=== PATIENT | male | born 1980 | race Caucasian/White ===

== ENCOUNTER 2016-06-27 22:40 | Emergency (ER) | payer SELFPAY ==
[~2016-06-27] VITALS: Ht 185.4 cm; Wt 115.7 kg
[~2016-06-27 22:40] MED LIST: BENA1TAB3 PO; CEPH500C PO; HYDR-3714 PO; HYDR-757 PO; LISI1TAB10 PO; NAPR-243 PO; NAPR250T34 PO; VENL75CA PO; WRF10T PO
--- OUTSIDE RECORDS SUMMARY | 2016-06-27 22:46 | XMS REPORT ---
Author Author GREGORY HADLEY [facility] eClinicalWorks Address Unknown Phone Unavailable Care Team Providers Care Assistant Facility Manager Name Role Phone GREGORY HADLEY CP Unavailable Allergies, Adverse Reactions, Alerts Substance Reaction Event Type N.K.D.A. Info Not Available Non Drug Allergy Problems Problem Type Condition Code Onset Dates Condition Status Assessment Hypertension I10 Active Problem Headache R51 Active Problem Essential hypertension I10 Active Problem Hypertension I10 Active Problem Panic disorder without agoraphobia 300.01 Active Assessment Sinusitis J32.9 Active Problem Bipolar I disorder, most recent episode (or current) mixed, moderate 296.62 Active Problem Major depressive disorder, recurrent episode, severe, without mention of psychotic behavior 296.33 Active Medications Medication Code System Code Instructions Start Date End Date Status Dosage Sudafed [facility] [address]-75 60 mg Orally every 6 hrs Jun 05, 2015 1 tablet as needed Lisinopril-Hydrochlorothiazide [facility] [address]-46 20-25 MG Orally Once a day Jun 05, 2015 1 tablet Doxycycline Hyclate [facility] [address]-70 100 MG Orally every 12 hrs Jun 05, 2015 Jun 15, 2015 1 capsule Procedures Procedure Coding System Code Date VENIPUNCT, ROUTINE* CPT-4 87075 Jun 05, 2015 Office Visit, Est Pt., Level 4 CPT-4 20224 Jun 05, 2015 COMPREHEN METABOLIC PANEL CPT-4 03972 Jun 05, 2015 Vital Signs Date/Time: Jun 05, 2015 Temperature 98.0 F Weight 270 lbs Height 73 in BMI 35.62 Index Blood Pressure Diastolic 90 mmHg Blood Pressure Systolic 164 mmHg Cardiac Monitoring Heart Rate 90 bpm Results Name Result Date Reference Range Unit Abnormality Flag ROUTINE VENIPUNCTURE Summary Purpose eClinicalWorks Submission
[2016-06-27] MEDS ORDERED: TETRACAINE 0.5% OPHTH SOLN 5 ML BTL ONE (22:54)
[2016-06-27] MEDS ORDERED: TETRACAINE 0.5% OPHTH SOLN 5 ML BTL OP ONE (23:00)
[2016-06-27] MEDS ORDERED: RX-NEO/POLYB/HC OTIC (CORTISPORIN) SUSP 10 ML BTL OT STA (23:46)
--- NOTE | 2016-06-27 23:50 | ED EENT ---
History of Present Illness General Chief Complaint: Foreign Body Stated Complaint: FOREIGN BODY IN LEFT EAR Nursing Triage Note: Pt c/o possible cockroach in L ear Source: patient Exam Limitations: no limitations History of Present Illness Time seen by provider: 22:50 Initial Comments This 36-year-old gentleman presents to the emergency room and some distress due to a bug in his left ear. He attempted to flush it out with peroxide which was not effective. He no longer feels that moving but does feel the foreign body sensation and pain. Allergies and Home Medications Allergies Coded Allergies: No Known Drug Allergies (Unverified , 07/06/09) Home Medications No Active Prescriptions or Reported Meds Review of Systems Constitutional: no symptoms reported Ears: See HPI Neurological: No Symptoms Reported Past Slgptsp-Othemh-Qfanhw Hx Patient Social History Alcohol Use: Past History Recreational Drug Use: No Smoking Status: Current Everyday Smoker Type Used: Cigarettes Recent Foreign Travel: No Contact w/Someone Who Travel: No Recent Infectious Disease Expo: No Recent Hopitalizations: No Seasonal Allergies Seasonal Allergies: No Surgeries HX Surgeries: Yes Surgeries: Orthopedic Respiratory Hx Respiratory Disorders: Yes Respiratory Disorders: Pulmonary Embolism Cardiovascular Hx Cardiac Disorders: Yes Cardiac Disorders: Deep Vein Thrombosis, Hypertension Neurological Hx Neurological Disorders: No Reproductive System Hx Reproductive Disorders: No Genitourinary Hx Genitourinary Disorders: No Gastrointestinal Hx Gastrointestinal Disorders: No Musculoskeletal Hx Musculoskeletal Disorders: Yes (DVT, chronic right knee pain, cyst posterior right knee) Endocrine Hx Endocrine Disorders: No HEENT HX ENT Disorders: No Cancer Hx Cancer: No Psychosocial Hx Psychiatric Problems: Yes Behavioral Health Disorders: Depression Blood Transfusions Hx Blood Disorders: Yes (DVTs) Family Medical History Significant Family History: No Pertinent Family Hx Physical Exam Vital Signs Vital Sign - Last 12Hours 06/27/16 22:52 Temp 97.0 Pulse 80 Resp 18 B/P 167/126 Pulse Ox 96 O2 Delivery Room Air General Appearance: WD/WN moderate distress Ears: left ear auricle normal, bilateral ear TM red, bilateral ear other ( large bug in the left ear canal resembling a bedbug or Jones. 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 Tetracaine was then drained out. Canal was visualized with a metal speculum and overhead light. The bug was then removed with a small pair of mosquitoes. Ear was reexamined after removal. Cortisporin drops were then applied and dispensed with patient. Progress/Results/Core Measures Results/Orders My Orders Orders-RAMA HARVEY MD Tetracaine 0.5% Ophth Soln (Tetravisc 0. (06/27/16 23:00) Tetracaine 0.5% Ophth Soln (Tetravisc 0. (06/27/16 22:54) Rx-Damián/Poly/Hc Otic Susp (Rx-Cortisporin (06/27/16 23:46) Medications Given in ED Current Medications Medications Dose Ordered Sig/Matty Route Start Time Stop Time Status Last Admin Dose Admin Tetracaine HCl 1 OR 2 DROPS INTO AFFEC... ONCE ONCE OP 06/27/16 23:00 06/27/16 23:01 DC 06/27/16 23:01 2 ML Vital Signs/I&O Vital Sign - Last 12Hours 06/27/16 06/28/16 22:52 00:08 Temp 97.0 97.0 Pulse 80 80 Resp 18 18 B/P 167/126 Pulse Ox 96 96 O2 Delivery Room Air Blood Pressure Mean: 140 Departure Impression Impression: Primary Impression: Foreign body in left ear Qualified Code: T16.2XXA - Foreign body in left ear, initial encounter Disposition: 01 HOME, SELF-CARE Condition: Improved Departure-Patient Inst. Decision time for Depature: 23:40 Referrals: [facility] (PCP/Family) Primary Care Physician Patient Instructions: NO INSTRUCTIONS GIVEN Add. Discharge Instructions: Use the antibiotic ear drops provided by placing 4 drops in the left ear 4 times daily for the next 3-4 days. Follow-up with your primary care provider or return to the ER if you have any complications. All discharge instructions reviewed with patient and/or family. Voiced understanding. Scripts No Active Prescriptions or Reported Meds RAMA HARVEY MD Jun 27, 2016 23:50
[2016-06-28 00:08] VITALS: BP 155/98
== END 2016-06-28 00:08 | disposition home or self-care (01) ==
LOC: EDUNIT# 22:40 → ER 22:42
DX: T16.2XXA Foreign body in left ear, initial encounter (principal)
CPT/HCPCS: 99283

== ENCOUNTER 2016-07-08 18:58 | Emergency (ER) | payer SELFPAY | END 2016-07-08 19:57 | disposition left against medical advice (07) | LOC: EDUNIT# 18:58 → ER 18:59 | DX: R11.10 Vomiting, unspecified (principal); Z53.21 Procedure and treatment not carried out due to patient leaving prior to being seen by health care provider ==

== ENCOUNTER 2022-11-30 15:17 | Observation (INO) | payer SELFPAY ==
[~2022-11-30] VITALS: Ht 187.9 cm; Wt 109.3 kg
[2022-11-30 16:10] LABS: BASOPHILS # (AUTO) 0.1 10^3/uL (0.0-0.1); BASOPHILS % (AUTO) 1 % (0-10); EOSINOPHILS # (AUTO) 0.1 10^3/uL (0.0-0.3); EOSINOPHILS % (AUTO) 1 % (0-10); HEMATOCRIT 46 % (40-54); HEMOGLOBIN 15.9 g/dL (13.3-17.7); LYMPHOCYTES # (AUTO) 1.8 10^3/uL (1.0-4.0); LYMPHOCYTES % (AUTO) 15 % (12-44); MEAN CORPUSCULAR HEMOGLOBIN 30 pg (25-34); MEAN CORPUSCULAR HGB CONC 35 g/dL (32-36); MEAN CORPUSCULAR VOLUME 87 fL (80-99); MEAN PLATELET VOLUME 11.9 fL (9.0-12.2); MONOCYTES # (AUTO) 1.8 10^3/uL (0.0-1.0); MONOCYTES % (AUTO) 15 % (0-12); NEUTROPHILS # (AUTO) 8.2 10^3/uL (1.8-7.8); NEUTROPHILS % (AUTO) 68 % (42-75); PLATELET COUNT 226 10^3/uL (130-400)
[2022-11-30 16:15] LABS: POTASSIUM 3.9 MMOL/L (3.6-5.0)
[2022-11-30 16:17] LABS: CALCIUM 9.9 MG/DL (8.5-10.1)
[2022-11-30 16:21] LABS: CREATININE SERUM 1.43 MG/DL (0.60-1.30)
[2022-11-30] MEDS ORDERED: NS IV 1000 ML 1,000 ML IV SCH (16:45)
--- NOTE | 2022-11-30 17:14 | ED Lower Extremity ---
General Chief Complaint: Lower Extremity Stated Complaint: RIGHT LEG SWELLING Nursing Triage Note: PT ARRIVED BY [facility], SENT FROM [facility] WITH CC OF RIGHT UPPER THIGH PAIN X4 DAYS. LEG APPEARS TO HAVE RED, SWOLLEN BUMPS UPON ARRIVAL. HX OF DVTS AND PE IN 2007. Source: patient Exam Limitations: no limitations (ZAYDA KIM MD) History of Present Illness Date Seen by Provider: Nov 30, 2022 Time Seen by Provider: 15:50 Initial Comments Patient is a 42-year-old male who presents to the emergency department with a chief complaint of right leg pain. He states he noticed some "big veins" in his right thigh and beside his knee about 4 days ago. They have continued to e nlarge; a bit more red and hot and painful. He was seen at [facility] clinic today and sent for concern of DVT. Patient denies any fever, chills. He has had decreased appetite. No chest pain or shortness of breath. No problems with bowel or bladder. He does have a remote history of DVT in the right lower extremity and subsequent PE. He was on Coumadin many years ago but took himself off of it due to financial reasons and work reasons. He has not taken anything for pain. Onset: other (4 days) Severity: moderate Pain/Injury Location: right knee, right thigh Method of Injury: unknown Modifying Factors: Worse With Movement (ZAYDA KIM MD) Allergies and Home Medications Allergies Coded Allergies: No Known Drug Allergies (Unverified , 07/06/09) Patient Home Medication List Home Medication List Reviewed: Yes (ZAYDA KIM MD) No Active Prescriptions or Reported Meds Review of Systems Constitutional: see HPI Respiratory: no symptoms reported Cardiovascular: no symptoms reported Gastrointestinal: no symptoms reported Genitourinary: no symptoms reported Musculoskeletal: other ("swollen veins") Skin: other (redness and swelling) (ZAYDA KIM MD) All Other Systems Reviewed Negative Unless Noted: Yes (ZAYDA KIM MD) Past Qzjmtbm-Jxcago-Wvwgpm Hx Patient Social History Tobacco Use?: Yes Tobacco type used: Cigarettes Substance use?: Yes Substance type: Marijuana Alcohol Use?: No (ZAYDA KIM MD) Seasonal Allergies Seasonal Allergies: No (ZAYDA KIM MD) Past Medical History Orthopedic Pulmonary Embolism Deep Vein Thrombosis, Hypertension Reproductive Disorders: No Depression (ZAYDA KIM MD) Family Medical History No Pertinent Family Hx (ZAYDA KIM MD) Physical Exam Vital Signs Vital Signs - First Documented 11/30/22 15:20 Temp 36.2 Pulse 97 B/P (MAP) 164/115 (131) Pulse Ox 98 O2 Delivery Room Air (MAE,JORGE K DO) Vital Signs Capillary Refill : (ZAYDA KIM MD) Height, Weight, BMI Height: 6'1" Weight: 255lbs. oz. 115.243506rj; 30.00 BMI Method:Stated General Appearance: WD/WN, no apparent distress HEENT: PERRL/EOMI Cardiovascular: regular rate, rhythm Respiratory: lungs clear, normal breath sounds, no respiratory distress, no accessory muscle use Gastrointestinal: non tender, soft Hips: bilateral hip non-tender, bilateral hip normal inspection, bilateral hip normal range of motion, bilateral hip no evidence of injury Legs: bilateral leg normal range of motion Knees: right knee pain, right knee soft tissue tenderness, right knee swelling Ankles: bilateral ankle non-tender, bilateral ankle normal inspection, bilateral ankle normal range of motion Feet: bilateral foot non-tender, bilateral foot normal inspection, bilateral foot normal range of motion Neurologic/Psychiatric: alert, normal mood/affect, oriented x 3 Skin: warm/dry, other (Patient has multipple enlarged lesions to the right lateral knee and across the anterior lower thigh extending medially to inner distal thigh. INcreased warmth and erythema. tender to palpation. The lesions are not fluctuant) (ZAYDA KIM MD) Progress/Results/Core Measures Results/Orders Lab Results Laboratory Tests Test 11/30/22 15:21 11/30/22 15:27 Range/Units White Blood Count 12.0 H 4.3-11.0 10^3/uL Red Blood Count 5.29 4.30-5.52 10^6/uL Hemoglobin 15.9 13.3-17.7 g/dL Hematocrit 46 40-54 % Mean Corpuscular Volume 87 80-99 fL Mean Corpuscular Hemoglobin 30 25-34 pg Mean Corpuscular Hemoglobin Concent 35 32-36 g/dL Red Cell Distribution Width 13.1 10.0-14.5 % Platelet Count 226 130-400 10^3/uL Mean Platelet Volume 11.9 9.0-12.2 fL Immature Granulocyte % (Auto) 0 % Neutrophils (%) (Auto) 68 42-75 % Lymphocytes (%) (Auto) 15 12-44 % Monocytes (%) (Auto) 15 H 0-12 % Eosinophils (%) (Auto) 1 0-10 % Basophils (%) (Auto) 1 0-10 % Neutrophils # (Auto) 8.2 H 1.8-7.8 10^3/uL Lymphocytes # (Auto) 1.8 1.0-4.0 10^3/uL Monocytes # (Auto) 1.8 H 0.0-1.0 10^3/uL Eosinophils # (Auto) 0.1 0.0-0.3 10^3/uL Basophils # (Auto) 0.1 0.0-0.1 10^3/uL Immature Granulocyte # (Auto) 0.1 0.0-0.1 10^3/uL Prothrombin Time 13.5 12.2-14.7 SEC INR Comment 1.0 0.8-1.4 Activated Partial Thromboplast Time 30 24-35 SEC Sodium Level 142 135-145 MMOL/L Potassium Level 3.9 3.6-5.0 MMOL/L Chloride Level 104 98-107 MMOL/L Carbon Dioxide Level 26 21-32 MMOL/L Anion Gap 12 5-14 MMOL/L Blood Urea Nitrogen 17 7-18 MG/DL Creatinine 1.43 H 0.60-1.30 MG/DL Estimat Glomerular Filtration Rate 63 BUN/Creatinine Ratio 12 Glucose Level 94 70-105 MG/DL Calcium Level 9.9 8.5-10.1 MG/DL C-Reactive Protein High Sensitivity 8.60 H 0.00-0.50 MG/DL Lactic Acid Level 0.92 0.50-2.00 MMOL/L (MAE,JORGE K DO) My Orders Orders - MAE,JORGE K DO Fibrin Degradation Products (11/30/22 18:03) Protime With Inr (11/30/22 18:03) Partial Thromboplastin Time (11/30/22 18:03) Enoxaparin Injection (Lovenox Injection) (11/30/22 18:15) Enoxaparin Injection (Lovenox Injection) (11/30/22 18:15) Drug Screen Stat (Urine) (11/30/22 18:08) Ua Culture If Indicated (11/30/22 18:08) Aspirin Chewable Tablet (Baby Aspirin Ch (11/30/22 18:15) Magnesium (11/30/22 18:09) Liver Panel (11/30/22 18:09) Ed Admission (Communication) (11/30/22 18:22) (JORGE WALL DO) Medications Given in ED Current Medications Medications Dose Ordered Sig/Matty Route Start Time Stop Time Status Last Admin Dose Admin Aspirin 324 mg ONCE ONCE PO 11/30/22 18:15 11/30/22 18:16 DC 11/30/22 18:12 324 MG Enoxaparin Sodium 50 mg ONCE ONCE SC 11/30/22 18:15 11/30/22 18:16 DC 11/30/22 18:14 50 MG Enoxaparin Sodium 60 mg ONCE ONCE SC 11/30/22 18:15 11/30/22 18:16 DC 11/30/22 18:14 60 MG Iohexol 100 ml ONCE ONCE IV 11/30/22 17:15 11/30/22 17:16 DC 11/30/22 17:24 80 ML Piperacillin Sod/ Tazobactam Sod 4.5 gm/Sodium Chloride 100 ml @ 200 mls/hr ONCE ONCE IV 11/30/22 18:00 11/30/22 18:29 11/30/22 18:03 200 MLS/HR Sodium Chloride 100 ml ONCE ONCE IV 11/30/22 17:15 11/30/22 17:16 DC 11/30/22 17:25 100 ML (JORGE WALL DO) Vital Signs/I&O 11/30/22 15:20 Temp 36.2 Pulse 97 B/P (MAP) 164/115 (131) Pulse Ox 98 O2 Delivery Room Air (JORGE WALL DO) Blood Pressure Mean: 131 Progress Progress Note : Progress Note 1800--ASSUMED CARE OF PT AT SHIFT CHANGE. CT RESULTS PENDING (JORGE WALL DO) Diagnostic Imaging Comments CT RIGHT LOWER EXTREMITY---PER RADIOLOGIST REPORT AT [address] for comparison. There is no fracture or destructive bony lesion. Muscle groups in the right thigh appear unremarkable. There is edema in the simultaneous fat especially anteriorly. There appear to be multiple varicosities in the soft tissues. There is a soft tissue calcification lateral and superior to the patella, which has a benign appearance. IMPRESSION: Diffuse soft tissue edema in the subcutaneous fat of the right thigh. There are varicosities in the soft tissues anteriorly. There is no soft tissue mass within the musculature or no acute bony abnormality. There is degenerative change of the right knee. There is a benign-appearing calcification superior and lateral patella. Reviewed: Reviewed by Me (JORGE WALL DO) Departure Communication (Admissions) 1809--ATTEMPTING TO CONTACT DR. MARROQUIN, HOSPITALIST FOR [facility].. MESSAGE LEFT ON CELL PHONE [phone]--SPOKE WITH DR. MARROQUIN, SHE WILL DO ADMIT ORDERS (JORGE WALL DO) Impression Primary Impression: Cellulitis of right lower extremity without foot Additional Impression: Acute superficial venous thrombosis of right lower extremity Disposition: ADMITTED INPATIENT Condition: Stable Admissions Decision to Admit Reason: Admit from ER (General) Decision to Admit/Date: Nov 30, 2022 Time/Decision to Admit Time: 18:20 (JORGE WALL DO) Departure-Patient Inst. Referrals: [facility] (PCP/Family) Primary Care Physician Scripts No Active Prescriptions or Reported Meds ZAYDA KIM MD Nov 30, 2022 17:14 JORGE WALL DO Nov 30, 2022 17:57
[2022-11-30] MEDS ORDERED: HOLD METFORMIN - RECEIVED CONTRAST 20 ML VIAL IV SCH (17:15)
[2022-11-30] MEDS ORDERED: NS 100 ML (IVPB) BAG IV ONE (17:15)
[2022-11-30] MEDS ORDERED: IOHEXOL 350 MG/ML 100 ML (OMNIPAQUE 350) VIAL IV ONE (17:15)
--- NOTE | 2022-11-30 17:58 | Diagnostic Imaging Report ---
INDICATION: Masslike density in right thigh, history of DVT TECHNIQUE: Multiple contiguous axial CT images of the right extremity were obtained after intravenous administration of iodinated contrast. Auto Exposure Controls were utilized during the CT exam to meet ALARA standards for radiation dose reduction. There is no prior CT for comparison. There is no fracture or destructive bony lesion. Muscle groups in the right thigh appear unremarkable. There is edema in the simultaneous fat especially anteriorly. There appear to be multiple varicosities in the soft tissues. There is a soft tissue calcification lateral and superior to the patella, which has a benign appearance. IMPRESSION: Diffuse soft tissue edema in the subcutaneous fat of the right thigh. There are varicosities in the soft tissues anteriorly. There is no soft tissue mass within the musculature or no acute bony abnormality. There is degenerative change of the right knee. There is a benign-appearing calcification superior and lateral patella. Dictated by: Dictated on workstation # [id number]
[2022-11-30] MEDS ORDERED: VANCOMYCIN INJECTION 1,000 MG in NS (IVPB) 250 ML IV ONE (18:00)
[2022-11-30] MEDS ORDERED: PIPERACILLIN SODIUM/TAZOBACTAM 4.5 GM in NS (IVPB) 100 ML IV ONE (18:00)
[2022-11-30] MEDS ORDERED: ASPIRIN 81 MG CHEW (CHILDREN'S ASA) PO ONE (18:15)
[2022-11-30] MEDS ORDERED: ENOXAPARIN 60 MG/0.6 ML (LOVENOX) SYR SC ONE ×2 (18:15)
[2022-11-30 18:20] LABS: PROTHROMBIN TIME PATIENT 13.5 SEC (12.2-14.7)
[2022-11-30 18:23] LABS: FIBRIN DEGRADATION PRODUCTS 1.3 UG/ML (0.00-0.49)
[2022-11-30] MEDS ORDERED: LACTATED RINGERS 1,000 ML IV ONE (18:30)
[2022-11-30 18:41] LABS: TOTAL PROTEIN 7.4 GM/DL (6.4-8.2)
[2022-11-30 18:43] LABS: BILIRUBIN,TOTAL 0.8 MG/DL (0.1-1.0)
[2022-11-30 18:46] LABS: BILIRUBIN,DIRECT 0.4 MG/DL (0.0-0.3); BILIRUBIN,INDIRECT 0.4 MG/DL
[2022-11-30 18:50] VITALS: BP 182/108
[2022-11-30] MEDS ORDERED: ALPRAZolam 1 MG (XANAX) TAB PO PRN (19:30)
[2022-11-30] MEDS ORDERED: diphenhydrAMINE 25 MG TAB (BENADRYL) PO PRN (19:30)
[2022-11-30] MEDS ORDERED: ANTACID SUSP 30 ML UDC (MYLANTA) PO PRN (19:30)
[2022-11-30] MEDS ORDERED: ACETAMINOPHEN 325 MG TABLET PO PRN (19:30)
[2022-11-30] MEDS ORDERED: MELATONIN 3 MG TABLET PO PRN (19:30)
[2022-11-30] MEDS ORDERED: LACTULOSE SYRUP 10GM/15ML (ENULOSE) 30ML UDC PO PRN (19:30)
[2022-11-30] MEDS ORDERED: diphenhydrAMINE 50 MG/ML INJ (BENADRYL) IVP PRN (19:30)
[2022-11-30] MEDS ORDERED: VANCOMYCIN INJECTION 0.1 MG in NS (IVPB) 250 ML IV SCH (19:30)
[2022-11-30] MEDS ORDERED: polyethylene glycoL POWDER 17 GM (MIRALAX) PACK PO PRN (19:30)
[2022-11-30] MEDS ORDERED: BISACODYL 10 MG SUPP (DULCOLAX) PR PRN (19:30)
[2022-11-30] MEDS ORDERED: ONDANSETRON 4 MG (ZOFRAN) ORAL DISSOLVE TAB PO PRN (19:30)
[2022-11-30] MEDS ORDERED: MILK OF MAGNESIA 400 MG/5 ML 30 ML UDC PO PRN (19:30)
[2022-11-30] MEDS ORDERED: CALCIUM CARBONATE 500 MG (TUMS) TAB.CHEW PO PRN (19:30)
[2022-11-30] MEDS ORDERED: ONDANSETRON 4 MG/2 ML (SDV) Z0FRAN IV PRN (19:30)
[2022-11-30] MEDS ORDERED: cloNIDine 0.1 MG (CATAPRES) TAB PO PRN (19:30)
[2022-11-30] MEDS ORDERED: HYDROmorphone 2 MG/ML VIAL (DILAUDID) IV PRN (19:30)
[2022-11-30] MEDS ORDERED: amLODIPine 5 MG (NORVASC) TAB PO ONE (19:45)
[2022-11-30 19:51] VITALS: BP 164/115
[2022-11-30] MEDS ORDERED: NS IV 1000 ML 1,000 ML ONE (19:52)
[2022-11-30] MEDS ORDERED: RT-ALBUTEROL SULF 2.5 MG/3 ML PRE-MIX VIAL INH PRN (20:00)
[2022-11-30] MEDS: NS IV 1000 ML 1,000 ML IV SCH (20:00)
[2022-11-30 20:10] VITALS: BP 174/125
[2022-11-30] MEDS ORDERED: VANCOMYCIN 1 GM/NS 250 ML IVPB IV ONE ×2 (20:45)
[2022-11-30] MEDS: SENNOSIDES 8.6 MG (SENOKOT) TAB PO SCH (20:53)
[2022-11-30] MEDS: inSUlin ASPART (NovoLOG) 1 UNIT/0.01 ML (CHARGE PER UNIT) SC SCH (20:53)
[2022-11-30] MEDS: DOCUSATE SODIUM 100 MG (COLACE) CAP PO SCH (20:53)
[2022-11-30] MEDS: PIPERACILLIN SODIUM/TAZOBACTAM 4.5 GM in NS (IVPB) 100 ML IV SCH (23:30)
[2022-11-30 23:50] VITALS: BP 185/102
[2022-12-01] MEDS: NS IV 1000 ML 1,000 ML IV SCH (03:33)
[2022-12-01 04:00] VITALS: BP 224/131
[2022-12-01] MEDS ORDERED: amLODIPine 5 MG (NORVASC) TAB PO ONE (04:15)
[2022-12-01] MEDS ORDERED: cloNIDine 0.2 MG (CATAPRES) TAB PO ONE (04:15)
[2022-12-01] MEDS ORDERED: amLODIPine 5 MG (NORVASC) TAB ONE (04:23)
[2022-12-01] MEDS ORDERED: cloNIDine 0.2 MG (CATAPRES) TAB ONE (04:26)
[2022-12-01 05:32] LABS: BASOPHILS # (AUTO) 0.1 10^3/uL (0.0-0.1); BASOPHILS % (AUTO) 1 % (0-10); EOSINOPHILS # (AUTO) 0.2 10^3/uL (0.0-0.3); EOSINOPHILS % (AUTO) 2 % (0-10); HEMATOCRIT 43 % (40-54); HEMOGLOBIN 14.7 g/dL (13.3-17.7); LYMPHOCYTES % (AUTO) 18 % (12-44); MEAN CORPUSCULAR HEMOGLOBIN 30 pg (25-34); MEAN CORPUSCULAR HGB CONC 34 g/dL (32-36); MEAN CORPUSCULAR VOLUME 87 fL (80-99); MONOCYTES # (AUTO) 1.6 10^3/uL (0.0-1.0); MONOCYTES % (AUTO) 15 % (0-12); NEUTROPHILS # (AUTO) 7.1 10^3/uL (1.8-7.8); NEUTROPHILS % (AUTO) 64 % (42-75); PLATELET COUNT 212 10^3/uL (130-400); WHITE BLOOD COUNT 11.1 10^3/uL (4.3-11.0)
[2022-12-01 05:51] LABS: ALBUMIN 3.4 GM/DL (3.2-4.5); BILIRUBIN,TOTAL 0.6 MG/DL (0.1-1.0); CALCIUM 8.8 MG/DL (8.5-10.1); CREATININE SERUM 1.13 MG/DL (0.60-1.30); POTASSIUM 3.7 MMOL/L (3.6-5.0); TOTAL PROTEIN 6.3 GM/DL (6.4-8.2)
[2022-12-01] MEDS: inSUlin ASPART (NovoLOG) 1 UNIT/0.01 ML (CHARGE PER UNIT) SC SCH ×2 (05:51→11:00)
[2022-12-01] MEDS ORDERED: ENOXAPARIN 120 MG/0.8 ML (LOVENOX) SC SCH (06:00)
--- NOTE | 2022-12-01 07:10 | History & Physical-Hospitalist ---
History of Present Illness HPI/Chief Complaint CC: Right leg cellulitis with thrombosis HPI: This is a 42yoWM clinic patient of [facility] who has a h/o smoking and HTN non- compliant with medication who presented to the ER with right leg redness. No evidence of joint involvement. Severe HTN noted so meds were added. Patient really needs to go home so we will transition abx to PO and USG revealed peroneal thrombosis with no DVT but patient is high risk for DVT progression considering the limping gait and plan to go home to not ambulate we will initiate OAC for short term and add BP outpatient meds and recommend f/u closely. Source: patient Exam Limitations: no limitations Date Seen 12/01/22 Time Seen by a Provider: 11:00 Attending Physician [facility] PCP Admitting Physician: Inocencia Vargas DO Attending Physician: Inocencia Vargas DO Referring Physician Date of Admission Nov 30, 2022 at 18:47 Home Medications & Allergies Home Medications Reviewed patient Home Medication Reconciliation performed by pharmacy medication reconciliations heating repair technician and/or nursing. Patients Allergies have been reviewed. Allergies Allergies Coded Allergies No Known Drug Allergies (Unverified07/06/09) Past Hviusxx-Wxzgjl-Gctdrc Hx Patient Social History Marrital Status: single Employed/Student: unemployed Tobacco Use?: Yes Tobacco type used: Cigarettes Smoking Status: Current Everyday Smoker Smokeless Tobacco Frequency: Never a User Use of E-Cig and/or Vaping dev: No Substance use?: No Substance type: Marijuana Alcohol Use?: No Pt feels they are or have been: No Seasonal Allergies Seasonal Allergies: No Current Status Advance Directives: No Primary Language: Algerian Preferred Spoken Language: Algerian Is interpretation needed?: No Past Medical History Surgeries: Orthopedic Pulmonary Embolism Deep Vein Thrombosis, Hypertension Depression Family Medical History No Pertinent Family Hx Review of Systems Constitutional: see HPI Musculoskeletal: muscle pain, muscle stiffness Physical Exam Physical Exam Vital Signs Vital Signs - First Documented 11/30/22 11/30/22 11/30/22 11/30/22 15:20 18:43 19:51 20:03 Temp 36.2 Pulse 97 Resp 18 B/P (MAP) 164/115 (131) Pulse Ox 98 O2 Delivery Room Air O2 Flow Rate 0.00 FiO2 21 Capillary Refill : Height, Weight, BMI Height: 6'1" Weight: 255lbs. oz. 115.276737yz; 30.95 BMI Method:Stated General Appearance: No Apparent Distress Respiratory: Lungs Clear Cardiovascular: Regular Rate, Rhythm Extremity: Other (edema right leg with erythema) Neurologic/Psychiatric: Alert, Oriented x3, No Motor/Sensory Deficits, Normal Mood/Affect Results Results/Procedures Labs Laboratory Tests 11/30/22 15:21 12/01/22 05:01 Patient resulted labs reviewed. Assessment/Plan Admission Diagnosis Assessment: Right leg cellulitis Right leg thrombosis HTN OOC Smoker Plan: BP med OAC short term to prevent DVT transition Admission Status: Observation Clinical Quality Measures DVT/VTE Risk/Contraindication: Contraindications-Mechi: Other *list below* Other: cellulitis legs INOCENCIA VARGAS DO Dec 01, 2022 07:10
[2022-12-01] MEDS ORDERED: NITROGLYCERIN 2% OINT 1 GM UNIT DOSE PACKET TOP PRN (07:15)
[2022-12-01 07:38] VITALS: BP 195/110
[2022-12-01] MEDS: PIPERACILLIN SODIUM/TAZOBACTAM 4.5 GM in NS (IVPB) 100 ML IV SCH (08:09)
[2022-12-01] MEDS: hydrALAZINE (APRESOLINE) 25 MG TAB PO SCH ×2 (08:09→13:07)
[2022-12-01] MEDS: DOCUSATE SODIUM 100 MG (COLACE) CAP PO SCH (08:17)
[2022-12-01] MEDS: SENNOSIDES 8.6 MG (SENOKOT) TAB PO SCH (08:17)
[2022-12-01] MEDS ORDERED: VANCOMYCIN 1 GM/NS 250 ML IVPB IV SCH ×2 (09:00)
[2022-12-01] MEDS ORDERED: amLODIPine 5 MG (NORVASC) TAB PO SCH ×2 (09:00)
[2022-12-01 09:51] VITALS: BP 175/106
--- NOTE | 2022-12-01 10:23 | Diagnostic Imaging Report ---
EXAMINATION: US Right Lower Extremity Venous Duplex. TECHNIQUE: Multiple real-time grayscale images were obtained over the right lower extremity in various projections. Additional spectral analysis and color Doppler duplex images were also obtained. HISTORY: Right lower extremity swelling. COMPARISON: 08/23/2014. FINDINGS: The right common femoral vein, deep femoral vein, superficial femoral vein and popliteal vein are patent with normal mahoney scale and doppler appearance. There is normal respiratory variation and augmentation. There is thrombus within the distal peroneal vein. The posterior tibial vein demonstrates normal filling and compressibility. IMPRESSION: 1. Thrombus within the distal peroneal vein. No other evidence of deep vein thrombus in the right lower extremity. Dictated by: Dictated on workstation # [id number]
[2022-12-01 10:53] VITALS: BP 164/97
--- NOTE | 2022-12-01 11:05 | Consultation - Surgery ---
History of Present Illness History of Present Illness Patient Consulted On(blu/time) 12/01/22 11:00 Date Seen by Provider: Dec 01, 2022 Time Seen by Provider: 10:00 History of Present Illness Patient is seen this morning laying down in bed with the company of his mother after presenting to the ED the day prior. He states that the pain in his upper leg and the swelling of veins began 5 days prior. He does not know what brought it on, he states that he has a history of DVT but does not currently take any medications. He says that his veins in his right leg occasionally swell like this but not this bad. He states that he usually doesnt have pain with the s welling. He states that it is a burning pain and rates it as a 5/10 pain. He says that he has chronic night sweats. He states that he was given a shot of Lovenox yesterday. His BP is currently 195/110 and he does not take at home medications for his blood pressure. His WBC count has dropped from 12 to 11.1. He also had an increased D-dimer. Allergies and Home Medications Allergies Coded Allergies: No Known Drug Allergies (Unverified , 07/06/09) Patient Home Medication List Home Medication List Reviewed: Yes No Active Prescriptions or Reported Meds Past Egwhtny-Nmimoh-Zcssvl Hx Patient Social History Smoking Status: Current Everyday Smoker Type Used: Cigarettes Recent Hopitalizations: No Alcohol Use?: No Substance type: Marijuana Seasonal Allergies Seasonal Allergies: No Surgeries History of Surgeries: Yes Surgeries: Orthopedic (right knee) Respiratory History of Respiratory Disorde: Yes Respiratory Disorders: Pulmonary Embolism Cardiovascular History of Cardiac Disorders: Yes Cardiac Disorders: Deep Vein Thrombosis, Hypertension Neurological History of Neurological Disord: No Reproductive System Hx Reproductive Disorders: No Genitourinary History of Genitourinary Disor: No Gastrointestinal History of Gastrointestinal Di: No Musculoskeletal History of Musculoskeletal Dis: Yes Musculoskeletal Disorders: Arthritis (right knee) Endocrine History of Endocrine Disorders: No HEENT History of HEENT Disorders: No Cancer History of Cancer: No Psychosocial History of Psychiatric Problem: No Behavioral Health Disorders: Depression Integumentary History of Skin or Integumenta: No Blood Transfusions History of Blood Disorders: No Family Medical History Significant Family History: Heart Disease (father), Cancer (denies), DVT/PE (denies) Review of Systems-General Constitutional: No chills; diaphoresis (at night chronically); No fever EENTM: No ear discharge, No hearing loss, No ear pain Respiratory: No cough, No dyspnea on exertion, No hemoptysis, No phlegm, No short of breath Cardiovascular: No chest pain, No edema Gastrointestinal: No RUQ, No LUQ, No RLQ, No LLQ, No abdominal pain, No constipation, No diarrhea Genitourinary: No decreased output, No discharge Musculoskeletal: No back pain; joint pain (right knee) Skin: No dryness; lumps (right anterior and medial thigh); No rash Psychiatric/Neurological: Denies Anxiety, Denies Depressed Physical Exam-General Problems Physical Exam Vital Signs Vital Signs - First Documented 11/30/22 11/30/22 11/30/22 11/30/22 15:20 18:43 19:51 20:03 Temp 36.2 Pulse 97 Resp 18 B/P (MAP) 164/115 (131) Pulse Ox 98 O2 Delivery Room Air O2 Flow Rate 0.00 FiO2 21 Capillary Refill : General Appearance: WD/WN, no apparent distress Eyes: Bilateral Eye PERRL, Bilateral Eye EOMI HEENT: PERRL/EOMI Neck: non-tender, supple Respiratory: chest non-tender, lungs clear, no respiratory distress, no accessory muscle use Cardiovascular: no edema, no gallop, no murmur, tachycardia Gastrointestinal: non tender, soft; No distended, No guarding, No tenderness Rectal: deferred Back: no CVA tenderness, no vertebral tenderness Extremities: no pedal edema, no calf tenderness; No calf tenderness; inflammation (left anterior and medial thigh), swelling (left anterior and medial thigh) Neurologic/Psychiatric: alert, normal mood/affect, oriented x 3 Skin: ecchymosis (left anterior and medial thigh), pallor (left anterior and medial thigh) Lymphatic: no adenopathy (neck, supra or subclavicular. Inguinal bilaterally) Data Review Labs Laboratory Tests 11/30/22 15:21: White Blood Count 12.0H, Red Blood Count 5.29, Hemoglobin 15.9, Hematocrit 46, Mean Corpuscular Volume 87, Mean Corpuscular Hemoglobin 30, Mean Corpuscular Hemoglobin Concent 35, Red Cell Distribution Width 13.1, Platelet Count 226, Mean Platelet Volume 11.9, Immature Granulocyte % (Auto) 0, Neutrophils (%) (Auto) 68, Lymphocytes (%) (Auto) 15, Monocytes (%) (Auto) 15H, Eosinophils (%) (Auto) 1, Basophils (%) (Auto) 1, Neutrophils # (Auto) 8.2H, Lymphocytes # (Auto) 1.8, Monocytes # (Auto) 1.8H, Eosinophils # (Auto) 0.1, Basophils # (Auto) 0.1, Immature Granulocyte # (Auto) 0.1, Prothrombin Time 13.5, INR Comment 1.0, Activated Partial Thromboplast Time 30, D-Dimer 1.30H, Sodium Level 142, Potassium Level 3.9, Chloride Level 104, Carbon Dioxide Level 26, Anion Gap 12, Blood Urea Nitrogen 17, Creatinine 1.43H, Estimat Glomerular Filtration Rate 63, BUN/Creatinine Ratio 12, Glucose Level 94, Calcium Level 9.9, Magnesium Level 2.0, Total Bilirubin 0.8, Direct Bilirubin 0.4H, Indirect Bilirubin 0.4, Aspartate Amino Transf (AST/SGOT) 16, Alanine Aminotransferase (ALT/SGPT) 14, Alkaline Phosphatase 81, C-Reactive Protein High Sensitivity 8.60H, Total Protein 7.4, Albumin 4.0 11/30/22 15:27: Lactic Acid Level 0.92 11/30/22 20:49: Glucometer 99 12/01/22 05:01: White Blood Count 11.1H, Red Blood Count 4.94, Hemoglobin 14.7, Hematocrit 43, Mean Corpuscular Volume 87, Mean Corpuscular Hemoglobin 30, Mean Corpuscular Hemoglobin Concent 34, Red Cell Distribution Width 13.2, Platelet Count 212, Mean Platelet Volume 12.0, Immature Granulocyte % (Auto) 0, Neutrophils (%) (Auto) 64, Lymphocytes (%) (Auto) 18, Monocytes (%) (Auto) 15H, Eosinophils (%) (Auto) 2, Basophils (%) (Auto) 1, Neutrophils # (Auto) 7.1, Lymphocytes # (Auto) 2.0, Monocytes # (Auto) 1.6H, Eosinophils # (Auto) 0.2, Basophils # (Auto) 0.1, Immature Granulocyte # (Auto) 0.0, Sodium Level 141, Potassium Level 3.7, Chloride Level 106, Carbon Dioxide Level 24, Anion Gap 11, Blood Urea Nitrogen 15, Creatinine 1.13, Estimat Glomerular Filtration Rate 83, BUN/Creatinine Ratio 13, Glucose Level 108H, Calcium Level 8.8, Total Bilirubin 0.6, Aspartate Amino Transf (AST/SGOT) 17, Alanine Aminotransferase (ALT/SGPT) 16, Alkaline Phosphatase 71, Total Protein 6.3L, Albumin 3.4, Corrected Calcium 9.3 12/01/22 05:50: Glucometer 114H Radiology EXAMINATION: US Right Lower Extremity Venous Duplex. TECHNIQUE: Multiple real-time grayscale images were obtained over the right lower extremity in various projections. Additional spectral analysis and color Doppler duplex images were also obtained. HISTORY: Right lower extremity swelling. COMPARISON: 08/23/2014. FINDINGS: The right common femoral vein, deep femoral vein, superficial femoral vein and popliteal vein are patent with normal mahoney scale and doppler appearance. There is normal respiratory variation and augmentation. There is thrombus within the distal peroneal vein. The posterior tibial vein demonstrates normal filling and compressibility. IMPRESSION: 1. Thrombus within the distal peroneal vein. No other evidence of deep vein thrombus in the right lower extremity. Dictated by: Dictated on workstation # [id number] Dict: 12/01/22 1007 Trans: 12/01/22 1053 [facility] [id number] Interpreted by: ANTONIETTA MAURICIO DO Electronically signed by: ANTONIETTA MAURICIO DO 12/01/22 1053 Assessment/Plan Assessment/Plan Assessment/Plan Cellulitis of Right Upper Extremity HTN History of DVT Patient is worried about the pain that he is having and the swelling he believes is worse than usual. Will continue anticoagulation, as well as IV abx use, fluid replinishment. Clinical Quality Measures DVT/VTE Risk/Contraindication: Contraindications-Mechi: Other *list below* Other: cellulitis legs GARY VELA Dec 01, 2022 11:05
[2022-12-01 11:20] VITALS: BP 140/103
[2022-12-01] MEDS ORDERED: APIX5TAB PO (12:45)
[2022-12-01] MEDS ORDERED: AMOX1TAB12 PO (12:45)
[2022-12-01] MEDS ORDERED: AMLO-250 PO (12:45)
[2022-12-01] MEDS ORDERED: HYDR-3923 PO (12:45)
[2022-12-01] MEDS ORDERED: DOXY100T2 PO (12:45)
[2022-12-01] MEDS ORDERED: OXC5T PO (12:45)
--- NOTE | 2022-12-01 12:46 | Discharge Summary ---
Discharge Summary Hospital Course Was the Problem List Reviewed?: Yes Problems/Dx: (1) Cellulitis of right lower extremity without foot Status: Acute (2) Acute superficial venous thrombosis of right lower extremity Status: Acute Hospital Course Date of Admission: Nov 30, 2022 at 18:47 Admission Diagnosis : Family Physician/Provider: Center[facility] Date of Discharge: 12/01/22 Discharge Diagnosis: [ ] Hospital Course: see hpi Labs and Pending Lab Test: Laboratory Tests 11/30/22 15:21: White Blood Count 12.0H, Red Blood Count 5.29, Hemoglobin 15.9, Hematocrit 46, Mean Corpuscular Volume 87, Mean Corpuscular Hemoglobin 30, Mean Corpuscular Hemoglobin Concent 35, Red Cell Distribution Width 13.1, Platelet Count 226, Mean Platelet Volume 11.9, Immature Granulocyte % (Auto) 0, Neutrophils (%) (Auto) 68, Lymphocytes (%) (Auto) 15, Monocytes (%) (Auto) 15H, Eosinophils (%) (Auto) 1, Basophils (%) (Auto) 1, Neutrophils # (Auto) 8.2H, Lymphocytes # (Auto) 1.8, Monocytes # (Auto) 1.8H, Eosinophils # (Auto) 0.1, Basophils # (Auto) 0.1, Immature Granulocyte # (Auto) 0.1, Prothrombin Time 13.5, INR Comment 1.0, Activated Partial Thromboplast Time 30, D-Dimer 1.30H, Sodium Level 142, Potassium Level 3.9, Chloride Level 104, Carbon Dioxide Level 26, Anion Gap 12, Blood Urea Nitrogen 17, Creatinine 1.43H, Estimat Glomerular Filtration Rate 63, BUN/Creatinine Ratio 12, Glucose Level 94, Calcium Level 9.9, Magnesium Level 2.0, Total Bilirubin 0.8, Direct Bilirubin 0.4H, Indirect Bilirubin 0.4, Aspartate Amino Transf (AST/SGOT) 16, Alanine Aminotransferase (ALT/SGPT) 14, Alkaline Phosphatase 81, C-Reactive Protein High Sensitivity 8.60H, Total Protein 7.4, Albumin 4.0 11/30/22 15:27: Lactic Acid Level 0.92 11/30/22 20:49: Glucometer 99 12/01/22 05:01: White Blood Count 11.1H, Red Blood Count 4.94, Hemoglobin 14.7, Hematocrit 43, Mean Corpuscular Volume 87, Mean Corpuscular Hemoglobin 30, Mean Corpuscular Hemoglobin Concent 34, Red Cell Distribution Width 13.2, Platelet Count 212, Mean Platelet Volume 12.0, Immature Granulocyte % (Auto) 0, Neutrophils (%) (Auto) 64, Lymphocytes (%) (Auto) 18, Monocytes (%) (Auto) 15H, Eosinophils (%) (Auto) 2, Basophils (%) (Auto) 1, Neutrophils # (Auto) 7.1, Lymphocytes # (Auto) 2.0, Monocytes # (Auto) 1.6H, Eosinophils # (Auto) 0.2, Basophils # (Auto) 0.1, Immature Granulocyte # (Auto) 0.0, Sodium Level 141, Potassium Level 3.7, Chloride Level 106, Carbon Dioxide Level 24, Anion Gap 11, Blood Urea Nitrogen 15, Creatinine 1.13, Estimat Glomerular Filtration Rate 83, BUN/Creatinine Ratio 13, Glucose Level 108H, Calcium Level 8.8, Total Bilirubin 0.6, Aspartate Amino Transf (AST/SGOT) 17, Alanine Aminotransferase (ALT/SGPT) 16, Alkaline Phosphatase 71, Total Protein 6.3L, Albumin 3.4, Corrected Calcium 9.3 12/01/22 05:50: Glucometer 114H 12/01/22 11:04: Glucometer 100 Home Meds Active Doxycycline Hyclate 100 Mg Tablet 100 Mg PO BID Amox Tr-K Clv 875-125 mg Tab (Amoxicillin/Potassium Clav) 875 Mg-125 Mg Tablet 1 Each PO BID Eliquis (Apixaban) 5 Mg Tablet 5 Mg PO BID 30 Days TAKE 2 TABLETS BID X 7 DAYS, THEN 1 TABLET BID Oxyir Tablet (Oxycodone HCl) 5 Mg Tab 5 Mg PO Q4HR PRN Amlodipine Besylate 5 Mg Tablet 5 Mg PO BID Hydralazine HCl 25 Mg Tablet 50 Mg PO TID Assessment/Pt Instructions PCP in 2 days Discharge Planning: <30 minutes discharge planning Discharge Physical Examination Vital Signs Vital Signs Date Time Temp Pulse Resp B/P (MAP) Pulse Ox O2 Delivery O2 Flow Rate FiO2 12/01/22 11:20 36.7 83 18 140/103 (115) 97 Room Air 11/30/22 20:03 0.00 21 General Appearance: No Apparent Distress, WD/WN Allergies: Coded Allergies: No Known Drug Allergies (Unverified , 07/06/09) Discharge Summary Date of Admission Nov 30, 2022 at 18:47 Date of Discharge Discharge Date: Dec 01, 2022 Clinical Quality Measures DVT/VTE Risk/Contraindication: Contraindications-Mechi: Other *list below* Other: cellulitis legs SHAQ MARROQUIN DO Dec 01, 2022 12:46
[2022-12-01 13:16] VITALS: BP 140/103
== END 2022-12-01 12:43 | disposition home or self-care (01) ==
LOC: EDUNIT# 15:17 → ER 15:18 → 4TH 18:47 → UNDOADMOB 18:47 → 4TH 18:52 → UNDODISOB 12-01 12:43
PROVIDERS: ADMIT Internal Medicine; ATTEND Internal Medicine
DX: L03.115 Cellulitis of right lower limb (principal); I82.811 Embolism and thrombosis of superficial veins of right lower extremity; I10 Essential (primary) hypertension; F17.210 Nicotine dependence, cigarettes, uncomplicated; Z91.199 Patient's noncompliance with other medical treatment and regimen due to unspecified reason
CPT/HCPCS: 73701; 80048; 80053; 80076; 82947 ×2; 83605; 83735; 85025 ×2; 85379; 85610; 85730; 86141; 87040; 93971; 96366; 96372; 96376 ×2; 99284; G0378; 36415

== ENCOUNTER 2023-01-28 11:51 | Emergency (ER) | payer SELFPAY ==
[~2023-01-28] VITALS: Ht 188 cm; Wt 106.6 kg
[~2023-01-28 11:51] MED LIST changes: +AMLO-250 PO; +AMOX1TAB12 PO; +APIX5TAB PO; +DOXY100T2 PO; +HYDR-3923 PO; +OXC5T PO
[2023-01-28] MEDS ORDERED: LABETALOL 5 mg/ml 20 ml SINGLE DOSE VIAL IV STA (12:27)
--- NOTE | 2023-01-28 12:29 | ED Neurological Problem ---
General Chief Complaint: Neuro-Stroke Like Symptoms Stated Complaint: STROKE LIKE SYMPTOMS Nursing Triage Note: Patient c/o difficulty talking and states that started last night. Patient denies a headache or hitting his head. Patient states his blood pressure has been running HI. Patient states he had a stroke x 1 mth ago. Patient states his Rt. leg has been weaker than his Lt. and states that started last night as well. Patient states his symptoms started between 5-6:00 last night. History of Present Illness Date Seen by Provider: Jan 28, 2023 Time Seen by Provider: 12:20 Initial Comments Patient is a 43-year-old male with a history of factor V Leiden disease, presents to the emergency department with family member chief complaint of concern for "new stroke". He has a history of hypertension and states that he is on 3 different blood pressure medications and that he did take them today. He is extremely hypertensive with a blood pressure in the 190s over 140s. He apparently was at home yesterday around 330 when the family member left him at his normal baseline but when he returned at 830 last night the patient had increased slurred speech and facial droop. He did not want to come to the doctor because he is afraid of hospitals. He states that he is compliant with his daily medications. He is on Eliquis and states that he only occasionally forgets to take 1 dose. He does smoke cigarettes. 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 He tells me that he has had 2 or 3 prior strokes, his first 1 at age 14. He cannot really delineate what his deficits have been in the past. Patient states that he has mild left-sided headache but he states this is from "punching myself in the head". Family member at the bedside reports he has a history of "anger issues" and takes it out on himself as opposed to family members. He denies any recent illnesses. No trauma. He is very emotionally labile, intermittently crying. Timing/Duration: other (20 hours ago) Associated Symptoms: slurred speech, trouble walking Allergies and Home Medications Allergies Coded Allergies: No Known Drug Allergies (Unverified , 07/06/09) Patient Home Medication List Home Medication List Reviewed: Yes Amlodipine Besylate (Amlodipine Besylate) 5 Mg Tablet, 5 MG PO BID Prescribed by: SHAQ MARROQUIN on 12/01/22 1245 Amoxicillin/Potassium Clav (Amox Tr-K Clv 875-125 mg Tab) 875 Mg-125 Mg Tablet, 1 EACH PO BID Prescribed by: SHAQ MARROQUIN on 12/01/22 124 Apixaban (Eliquis) 5 Mg Tablet, 5 MG PO BID Prescribed by: SHAQ MARROQUIN on 12/01/22 124 Doxycycline Hyclate (Doxycycline Hyclate) 100 Mg Tablet, 100 MG PO BID Prescribed by: SHAQ MARROQUIN on 12/01/22 124 Hydralazine HCl (Hydralazine HCl) 25 Mg Tablet, 50 MG PO TID Prescribed by: SHAQ MARROQUIN on 12/01/22 124 Oxycodone Hcl (Oxyir Tablet) 5 Mg Tab, 5 MG PO Q4HR PRN for PAIN-SEE DOSE INSTRUCTIONS Prescribed by: SHAQ MARROQUIN on 12/01/22 124 Review of Systems Review of Systems Constitutional: see HPI Eyes: No Symptoms Reported Ears, Nose, Mouth, Throat: no symptoms reported Respiratory: no symptoms reported Cardiovascular: no symptoms reported Gastrointestinal: no symptoms reported Genitourinary: no symptoms reported Musculoskeletal: no symptoms reported Skin: no symptoms reported Psychiatric/Neurological: Anxiety, Emotional Problems, Weakness (right leg), Other (worsened slurred speech/dysarthria) Past Hrujuum-Buftpc-Qgxldq Hx Patient Social History Tobacco Use?: Yes Tobacco type used: Cigarettes Smoking Status: Current Everyday Smoker Use of E-Cig and/or Vaping dev: No Substance use?: Yes Substance type: Marijuana Substance frequency: Couple times a week Alcohol Use?: No Pt feels they are or have been: No Immunizations Up To Date Influenza Vaccine Up-to-Date: No; Not Current Seasonal Allergies Seasonal Allergies: No Past Medical History Surgery/Hospitalization HX: Hx. stroke, HTN Surgeries: Yes Orthopedic Respiratory: Yes Pulmonary Embolism Cardiac: Yes Deep Vein Thrombosis, Hypertension Neurological: No Reproductive Disorders: No Genitourinary: No Gastrointestinal: No Musculoskeletal: Yes Arthritis Endocrine: No HEENT: No Cancer: No Psychosocial: No Depression Integumentary: No Blood Disorders: No Family Medical History Heart Disease, Cancer, DVT/PE Physical Exam Vital Signs Vital Signs - First Documented 01/28/23 11:56 Temp 35.6 Pulse 91 Resp 18 B/P (MAP) 201/150 (167) O2 Delivery Room Air Capillary Refill : Height, Weight, BMI Height: 6'1" Weight: 255lbs. oz. [id number]; 30.00 BMI Method:Stated General Appearance: WD/WN, moderate distress (crying) HEENT: PERRL/EOMI, normal ENT inspection Neck: full range of motion Respiratory: lungs clear, normal breath sounds, no respiratory distress, no accessory muscle use Cardiovascular: regular rate, rhythm Gastrointestinal: normal bowel sounds, non tender, soft Back: normal inspection Extremities: normal range of motion, normal inspection, no pedal edema Neurologic/Psychiatric: alert, motor weakness (left hand 4+; right leg 4+); No sensory deficit; other (emotionally labile - cryiing) Crainal Nerves: normal hearing, abnormal speech, facial asymmetry (left sided facial droop); No facial paresthesias; tongue deviation to R (mild) Coordination/Gait: negative Romberg's sign Motor/Sensory: no sensory deficit, no pronator drift, weak motor strength LUE, weak motor strength RLE Skin: normal color, warm/dry Stroke Onset of Symptoms Date of Onset of Symptoms: Jan 27, 2023 Onset of Symptoms: No NIH Stroke Scale Assessment Level of Consciousness: 0=Alert (0), Level of Consciousness-Questions: 0=Answers both month/age (0), LOC Commands: 0=Performs both tasks (0), Gaze: Normal (0), Visual Syed: 0=No visual loss (0), Facial Movement (Facial Paresis): 1=Minor paralysis (1), Motor Function-Arms Right: 0=No drift (0), Motor Function-Arms Left: 0=No drift (0), Motor Function-Legs Right: 0=No drift (0), Motor Function-Legs Left: 0=No drift (0), Limb Ataxia: 0=Absent (0), Sensory: 0=Normal:no loss (0), Best Language: 0=No aphasia (0), Dysarthria: 1=Mild to moderate loss (1), Extinction & Inattention: 0=No abnormality (0), Total: 2 Stroke Thrombolytic Exclusion Age 18 or Over: Yes History of CVA: Yes Severe Hypertension: Yes GI or Bleed: No Oral Anticoagulants: Yes Surgery or Trauma: No Puncture of Non-Compressible V: No Recent CPR: No Diabetic Hemorrhagic Retinopat: No Organ Biopsy: No Recent Obstetric Delivery: No Glucose: No NIH Stoke Scale >22: No Bacterial Endocarditis: No Pericarditis: No Improving Symptoms: No Platelets: No TPA Contraindication: Yes IV - TPa Received IV - TPa Procedure Performed?: No Progress/Results/Core Measures Results/Orders Lab Results Laboratory Tests Test 01/28/23 11:59 01/28/23 12:46 01/28/23 14:36 01/28/23 15:07 Range/Units White Blood Count 8.1 4.3-11.0 10^3/uL Red Blood Count 5.38 4.30-5.52 10^6/uL Hemoglobin 16.2 13.3-17.7 g/dL Hematocrit 47 40-54 % Mean Corpuscular Volume 88 80-99 fL Mean Corpuscular Hemoglobin 30 25-34 pg Mean Corpuscular Hemoglobin Concent 34 32-36 g/dL Red Cell Distribution Width 13.6 10.0-14.5 % Platelet Count 260 130-400 10^3/uL Mean Platelet Volume 11.5 9.0-12.2 fL Immature Granulocyte % (Auto) 0 % Neutrophils (%) (Auto) 65 42-75 % Lymphocytes (%) (Auto) 20 12-44 % Monocytes (%) (Auto) 12 0-12 % Eosinophils (%) (Auto) 2 0-10 % Basophils (%) (Auto) 1 0-10 % Neutrophils # (Auto) 5.3 1.8-7.8 10^3/uL Lymphocytes # (Auto) 1.6 1.0-4.0 10^3/uL Monocytes # (Auto) 1.0 0.0-1.0 10^3/uL Eosinophils # (Auto) 0.2 0.0-0.3 10^3/uL Basophils # (Auto) 0.1 0.0-0.1 10^3/uL Immature Granulocyte # (Auto) 0.0 0.0-0.1 10^3/uL Prothrombin Time 13.7 12.2-14.7 SEC INR Comment 1.0 0.8-1.4 Activated Partial Thromboplast Time 31 24-35 SEC D-Dimer 0.93 H 0.00-0.49 UG/ML Sodium Level 141 135-145 MMOL/L Potassium Level 3.8 3.6-5.0 MMOL/L Chloride Level 104 98-107 MMOL/L Carbon Dioxide Level 27 21-32 MMOL/L Anion Gap 10 5-14 MMOL/L Blood Urea Nitrogen 10 7-18 MG/DL Creatinine 1.33 H 0.60-1.30 MG/DL Estimat Glomerular Filtration Rate 68 BUN/Creatinine Ratio 8 Glucose Level 116 H 70-105 MG/DL Calcium Level 9.5 8.5-10.1 MG/DL Corrected Calcium 9.3 8.5-10.1 MG/DL Total Bilirubin 1.1 H 0.1-1.0 MG/DL Aspartate Amino Transf (AST/SGOT) 20 5-34 U/L Alanine Aminotransferase (ALT/SGPT) 15 0-55 U/L Alkaline Phosphatase 81 40-136 U/L Troponin I < 0.028 <0.028 NG/ML Total Protein 7.3 6.4-8.2 GM/DL Albumin 4.2 3.2-4.5 GM/DL Glucometer 112 H 70-110 MG/DL Urine Color YELLOW Urine Clarity CLEAR Urine pH 7.0 5-9 Urine Specific Rumsey 1.020 1.016-1.022 Urine Protein 2+ H NEGATIVE Urine Glucose (UA) NEGATIVE NEGATIVE Urine Ketones NEGATIVE NEGATIVE Urine Nitrite NEGATIVE NEGATIVE Urine Bilirubin NEGATIVE NEGATIVE Urine Urobilinogen 1.0 < = 1.0 MG/DL Urine Leukocyte Esterase NEGATIVE NEGATIVE Urine RBC (Auto) NEGATIVE NEGATIVE Urine RBC 0-2 /HPF Urine WBC 0-2 /HPF Urine Squamous Epithelial Cells 0-2 /HPF Urine Crystals NONE /LPF Urine Bacteria TRACE /HPF Urine Casts PRESENT /LPF Urine Hyaline Casts 0-2 H /LPF Urine Mucus SMALL H /LPF Urine Culture Indicated NO Urine Opiates Screen NEGATIVE NEGATIVE Urine Oxycodone Screen NEGATIVE NEGATIVE Urine Methadone Screen NEGATIVE NEGATIVE Urine Propoxyphene Screen NEGATIVE NEGATIVE Urine Barbiturates Screen NEGATIVE NEGATIVE Ur Tricyclic Antidepressants Screen NEGATIVE NEGATIVE Urine Phencyclidine Screen NEGATIVE NEGATIVE Urine Amphetamines Screen POSITIVE H NEGATIVE Urine Methamphetamines Screen POSITIVE H NEGATIVE Urine Benzodiazepines Screen NEGATIVE NEGATIVE Urine Cocaine Screen NEGATIVE NEGATIVE Urine Cannabinoids Screen POSITIVE H NEGATIVE My Orders Orders - ZAYDA KIM MD Cbc With Automated Diff (01/28/23 12:27) Protime With Inr (01/28/23 12:27) Partial Thromboplastin Time (01/28/23 12:27) Comprehensive Metabolic Panel (01/28/23 12:27) Fibrin Degradation Products (01/28/23 12:27) Troponin I Ryne (01/28/23 12:27) Ua Culture If Indicated (01/28/23 12:) Chest 1 View, Ap/Pa Only (01/28/23 12:27) Ekg Tracing (01/28/23 12:27) Nothing By Mouth (01/28/23 Lunch) Accucheck Stat ONCE (01/28/23 12:) Ed Iv/Invasive Line Start (01/28/23 12:27) Ed Iv/Invasive Line Start (01/28/23 12:27) Vital Signs Stroke Patient Q15M (01/28/23 12:27) Ct Head Wo-R/O Stroke (01/28/23 12:) O2 (01/28/23 12:27) Monitor-Rhythm Ecg Trace Only (01/28/23 12:) Dysphagia Screening Tool [id number] (01/28/23 12:27) Post Thrombolytic Adminstratio (01/28/23 12:) Lipid Panel (01/29/23 06:00) Ct Angio Head/Neck (01/28/23 12:27) Accucheck Stat ONCE (01/28/23 12:32) Ed Iv/Invasive Line Start (01/28/23 12:32) Ed Iv/Invasive Line Start (01/28/23 12:32) Vital Signs Stroke Patient Q15M (01/28/23 12:32) O2 (01/28/23 12:32) Iohexol Injection (Omnipaque 350 Mg/Ml 1 (01/28/23 12:45) Received Contrast (Hold Metformin- Contr (01/28/23 12:45) Ns (Ivpb) 100 Ml (Sodium Chloride 0.9% 1 (01/28/23 12:45) Labetalol Injection (Sdv) (Labetalol Inj (01/28/23 12:45) Drug Screen Stat (Urine) (01/28/23 15:03) Amlodipine Tablet (Amlodipine Tablet) (01/28/23 15:15) Hydralazine Injection (Hydralazine Injec (01/28/23 15:15) Medications Given in ED Current Medications Medications Dose Ordered Sig/Matty Route Start Time Stop Time Status Last Admin Dose Admin Amlodipine Besylate 10 mg ONCE ONCE PO 01/28/23 15:15 01/28/23 15:16 DC 01/28/23 15:24 10 MG Hydralazine HCl 10 mg ONCE ONCE IV 01/28/23 15:15 01/28/23 15:16 DC 01/28/23 15:23 10 MG Iohexol 100 ml ONCE ONCE IV 01/28/23 12:45 01/28/23 12:46 DC 01/28/23 12:56 75 ML Sodium Chloride 100 ml ONCE ONCE IV 01/28/23 12:45 01/28/23 12:46 DC 01/28/23 12:56 80 ML Vital Signs/I&O 01/28/23 11:56 Temp 35.6 Pulse 91 Resp 18 B/P (MAP) 201/150 (167) O2 Delivery Room Air Blood Pressure Mean: 167 Departure Impression Primary Impression: Hypertensive urgency Additional Impressions: Methamphetamine use Factor 5 Leiden mutation, heterozygous Chronic anticoagulation Disposition: HOME, SELF-CARE Condition: Improved Departure-Patient Inst. Decision time for Depature: 15:55 Referrals: [facility] (PCP/Family) Primary Care Physician Patient Instructions: High blood pressure emergencies Add. Discharge Instructions: Please continue taking your medications as prescribed. You should try and stop smoking because it increases your risk for stroke, heart attack, all cancers. Avoid anything that may increase your blood pressure, drugs, excess caffeine etc. Please follow-up next week with [facility]. You should have a blood pressure cuff at home and keep a record of your blood pressure once daily. Please bring this record to your next appointment at [facility]. I am starting you on a new blood pressure medication - Norvasc, 10mg. Take one pill once a day with your other medications. Return to the emergency department for any new, concerning or emergent complaints Scripts Amlodipine Besylate (Norvasc) 10 Mg Tablet 10 MG PO DAILY, #30 TAB Prov: ZAYDA KIM MD 01/28/23 Copy Copies To 1: KATE BURGESS KATHRYN M MD Jan 28, 2023 12:29
[2023-01-28 12:35] LABS: BASOPHILS # (AUTO) 0.1 10^3/uL (0.0-0.1); BASOPHILS % (AUTO) 1 % (0-10); EOSINOPHILS # (AUTO) 0.2 10^3/uL (0.0-0.3); EOSINOPHILS % (AUTO) 2 % (0-10); HEMATOCRIT 47 % (40-54); HEMOGLOBIN 16.2 g/dL (13.3-17.7); LYMPHOCYTES # (AUTO) 1.6 10^3/uL (1.0-4.0); LYMPHOCYTES % (AUTO) 20 % (12-44); MEAN CORPUSCULAR HEMOGLOBIN 30 pg (25-34); MEAN CORPUSCULAR HGB CONC 34 g/dL (32-36); MEAN CORPUSCULAR VOLUME 88 fL (80-99); MEAN PLATELET VOLUME 11.5 fL (9.0-12.2); MONOCYTES % (AUTO) 12 % (0-12); NEUTROPHILS # (AUTO) 5.3 10^3/uL (1.8-7.8); NEUTROPHILS % (AUTO) 65 % (42-75); PLATELET COUNT 260 10^3/uL (130-400); WHITE BLOOD COUNT 8.1 10^3/uL (4.3-11.0)
[2023-01-28 12:43] LABS: FIBRIN DEGRADATION PRODUCTS 0.93 UG/ML (0.00-0.49)
[2023-01-28] MEDS ORDERED: HOLD METFORMIN - RECEIVED CONTRAST 20 ML VIAL IV SCH (12:45)
[2023-01-28] MEDS ORDERED: NS 100 ML (IVPB) BAG IV ONE (12:45)
[2023-01-28] MEDS ORDERED: LABETALOL 5 mg/ml 4 ML SINGLE DOSE SYRINGE IV NR (12:45)
[2023-01-28] MEDS ORDERED: IOHEXOL 350 MG/ML 100 ML (OMNIPAQUE 350) VIAL IV ONE (12:45)
[2023-01-28 12:48] LABS: PROTHROMBIN TIME PATIENT 13.7 SEC (12.2-14.7)
[2023-01-28 12:49] LABS: ALANINE AMINOTRANSFERASE 15 U/L (0-55); ALBUMIN 4.2 GM/DL (3.2-4.5); ALKALINE PHOSPHATASE 81 U/L (40-136); BILIRUBIN,TOTAL 1.1 MG/DL (0.1-1.0); BUN/CREATININE RATIO 8; CALCIUM 9.5 MG/DL (8.5-10.1); CARBON DIOXIDE 27 MMOL/L (21-32); CHLORIDE 104 MMOL/L (98-107); CREATININE SERUM 1.33 MG/DL (0.60-1.30); GFR ESTIMATED 68; GLUCOSE 116 MG/DL (70-105); POTASSIUM 3.8 MMOL/L (3.6-5.0); SODIUM 141 MMOL/L (135-145); TOTAL PROTEIN 7.3 GM/DL (6.4-8.2)
--- NOTE | 2023-01-28 13:21 | Diagnostic Imaging Report ---
CLINICAL INDICATION: Patient has difficulty talking and states it started last night. Patient denies headache or hitting head. Patient's blood pressure has been running high. Patient had a stroke a month ago. Patient has right leg weaker than the left. EXAM: Axial CT scan of the brain performed without IV contrast. High-resolution axial CT brain images with sagittal and coronal reformations were also created. Auto Exposure Controls were utilized during the CT exam to meet ALARA standards for radiation dose reduction. COMPARISON: None. FINDINGS: There is no evidence of acute cerebral infarct, intracranial hemorrhage, or gross mass effect. The brain parenchymal volume appears appropriate for patient's age. There are patchy areas of low-density involving the white matter of both cerebral hemispheres. There is a small chronic infarct involving the anterior aspect of the right caudate. There is also a small area of amorphous low-density involving the right thalamus which may be related to chronic ischemic changes. There are amorphous low-density changes involving the aida. There is otherwise normal mahoney-white matter distinction. There is no significant midline shift or herniation. There is no evidence of hydrocephalus. The basal cisterns are unremarkable. The skull, extracranial soft tissue, and orbits are unremarkable. There is mild mucosal thickening involving both maxillary sinuses. Temporal bones show no significant abnormality. IMPRESSION: 1: There is no dense vessel sign seen. There is no definite CT evidence of interval acute cerebral infarction, intracranial hemorrhage, or mass seen. The diffuse low attenuation changes throughout the brain parenchyma may possibly obscure more subtle findings. If there is clinical concern for acute cerebral infarction, MRI of the brain would better evaluate. 2: There are multiple areas of low-density white matter changes involving both cerebral hemispheres and aida which may be from chronic ischemic changes but superimposed acute abnormality could not be completely excluded. 3: Results of this report were discussed with Dr. Samantha Wilson via the telephone on 01/28/2023 at 1317 hours. Dictated by: Dictated on workstation # [id number]
--- NOTE | 2023-01-28 13:24 | Diagnostic Imaging Report ---
PROCEDURE: CT angiography of the head and CT angiography of the neck with and without contrast. TECHNIQUE: Contiguous noncontrast images were obtained from the skull base through the vertex. After intravenous contrast administration, helical CT angiography of the neck was performed. Source data was reformatted into 3D MIP projections. Delayed post contrast acquisition was also obtained. Auto Exposure Controls were utilized during the CT exam to meet ALARA standards for radiation dose reduction. INDICATION: Aphasia COMPARISON: CT of the head on 01/28/2023. FINDINGS: The aorta is normal in caliber. The left common, left internal, left external carotid artery are patent and normal in caliber. The intracranial ICAs are patent and normal in caliber. The MCA and sales order clerk are patent and normal in caliber bilaterally. No aneurysm or arteriovenous malformation. The bilateral vertebral arteries are patent and normal in caliber. Bilateral subclavian arteries are patent. No aneurysm or arteriovenous malformation. No lymphadenopathy within the neck. The intracranial structures are normal. No abnormal enhancement. Scattered hypoattenuation within the periventricular and subcortical white matter. Generalized prominence of ventricles and cortical sulci.. Paranasal sinuses demonstrate thickening within the bilateral maxillary sinuses. The skull is intact. The globes and orbits are normal. IMPRESSION: No large vessel occlusion or stenosis within the head and neck. Dictated by: Dictated on workstation # [id number]
--- NOTE | 2023-01-28 13:41 | Diagnostic Imaging Report ---
EXAMINATION: Chest 1 view HISTORY: Strokelike symptoms. Shortness of breath. COMPARISON: 08/23/2014. FINDINGS: The lung volumes are normal. No focal consolidation is seen. No large pleural effusion or pneumothorax is seen. The cardiomediastinal silhouette is normal in size and contour. No acute osseous abnormality is seen. IMPRESSION: No acute pleuroparenchymal process. Dictated by: Dictated on workstation # [id number]
[2023-01-28 14:53] LABS: BACTERIA,URINE TRACE /HPF; BILIRUBIN,URINE NEGATIVE (NEGATIVE); CLARITY,URINE CLEAR; COLOR,URINE YELLOW; GLUCOSE, URINE (UA) NEGATIVE (NEGATIVE); HYALINE CASTS, URINE 0-2 /LPF; KETONES,URINE NEGATIVE (NEGATIVE); LEUKOCYTE ESTERASE ,URINE NEGATIVE (NEGATIVE); NITRITE,URINE NEGATIVE (NEGATIVE); PROTEIN,URINE 2+ (NEGATIVE); RBC,URINE 0-2 /HPF; SQUAMOUS EPITHELIAL CELL,UR 0-2 /HPF; WBC,URINE 0-2 /HPF
[2023-01-28] MEDS ORDERED: amLODIPine 10 MG TABLET PO ONE (15:15)
[2023-01-28] MEDS ORDERED: hydrALAZINE INJECTION 20 MG/ML VIAL IV ONE (15:15)
[2023-01-28 15:23] LABS: AMPHETAMINE SCREEN, URINE POSITIVE (NEGATIVE); BARBITURATE SCREEN URINE NEGATIVE (NEGATIVE); BENZODIAZEPINES SCREEN URINE NEGATIVE (NEGATIVE); CANNABINOID SCREEN, URINE POSITIVE (NEGATIVE); COCAINE SCREEN URINE NEGATIVE (NEGATIVE); METHADONE STAT NEGATIVE (NEGATIVE); OPIATE SCREEN URINE NEGATIVE (NEGATIVE); OXYCODONE STAT NEGATIVE (NEGATIVE); PROPOXYPHENE STAT NEGATIVE (NEGATIVE); TRICYCLIC ANTIDEPRESSANTS SCRE NEGATIVE (NEGATIVE)
[2023-01-28] MEDS ORDERED: AMLO10TA4 PO (15:57)
[2023-01-28 16:07] VITALS: BP 136/110
== END 2023-01-28 16:15 | disposition home or self-care (01) ==
LOC: EDUNIT# 11:51 → ER 11:54
DX: I16.0 Hypertensive urgency (principal); F15.10 Other stimulant abuse, uncomplicated; D68.51 Activated protein C resistance; F17.210 Nicotine dependence, cigarettes, uncomplicated; I10 Essential (primary) hypertension; I63.9 Cerebral infarction, unspecified; R29.810 Facial weakness; G81.94 Hemiplegia, unspecified affecting left nondominant side; R47.81 Slurred speech; R29.702 NIHSS score 2; Z79.01 Long term (current) use of anticoagulants; Z79.899 Other long term (current) drug therapy; Z28.310 Unvaccinated for COVID-19
CPT/HCPCS: 36415; 70450; 70496; 70498; 71045; 80053; 80306; 81000; 82947; 84484; 85025; 85379; 85610; 85730; 93005; 93041